=== PATIENT | female | born 1955 | race Caucasian/White ===

== ENCOUNTER 2023-04-30 07:58 | Day surgery (SDC) | payer BC ==
[~2023-04-30 07:58] MED LIST: Lactated Ringers 1,000 ML IV SCH
[2023-04-30] MEDS ORDERED: Propofol 200 MG/20 ML SDV ONE ×2 (09:37→10:31)
[2023-04-30] MEDS ORDERED: fentaNYL 100 MCG/2 ML SDV ONE (09:38)
== END 2023-04-30 11:50 | disposition home or self-care (01) ==
LOC: VM.SDS 07:58
PROVIDERS: ATTEND Student in an Organized Health Care Education/Training Program
DX: Z12.11 Encounter for screening for malignant neoplasm of colon (principal); D12.3 Benign neoplasm of transverse colon; D12.4 Benign neoplasm of descending colon; M85.80 Other specified disorders of bone density and structure, unspecified site
CPT/HCPCS: 00812; 45385; J2704; J3010; J7120